=== PATIENT | male | born 2000 | race Caucasian/White ===

== ENCOUNTER → 2020-07-05 | Outpatient (CLI) | payer OTHER ==
--- NOTE | 2020-07-05 16:44 | RADIOLOGY REPORT (SQ) ---
EXAM DESCRIPTION: CT LT UPPER EXTREMITY WITHOUT IMAGES COMPLETED DATE/TIME: 07/05/2020 12:42 pm REASON FOR STUDY: LT HAND FX/LT THUMB FX COMPARISON: None. TECHNIQUE: Axial imaging performed through the Left thumb with reformatted coronal and sagittal imaging windowed for bone and soft tissues. Images saved to PAC S. 3D IMAGING: Were 3D images as MIP, SSD, or volume rendering performed at the work station? No LIMITATIONS: None. FINDINGS: SOFT TISSUES: No obvious swelling or foreign body. BONY STRUCTURES: Nondisplaced intra-articular fracture base of 1st metacarpal. No other fracture omar ntified. MINERALIZATION: Normal. OTHER: No other significant finding. IMPRESSION: Fracture base of 1st metacarpal. Reading location - IP/workstation name: [email or web address]
== END ==
LOC: RAD 11:51
PROVIDERS: ATTEND Orthopaedic Surgery
DX: S62.212D Bennett's fracture, left hand, subsequent encounter for fracture with routine healing (principal); X58.XXXD Exposure to other specified factors, subsequent encounter